=== PATIENT | female | born 1980 | race American Indian/Alaskan Native ===

== ENCOUNTER 2017-06-06 16:24 | Inpatient (IN) | payer OTHER ==
--- NOTE | 2017-06-06 18:32 | History and Physical Report ---
History of Present Illness Date of examination: 06/06/17 Date of admission: 06/06/17 16:26 Chief complaint: IUP at 36+2 weeks admitted for induction Morbid obesity History of present illness: 36-year-old at 36+2 wks is referred for induction of labor, she is a Late transfer to [facility]. Essential history this patient with morbid obesity, BMI 62 being seen by [facility] is referred for induction. complicated by cerclage placement by [facility] physician, IUGR (EFW 5% w/ AC < 1%), Morbid Obesity and Jehovahs witness status. Patient is a late transfer to [place] at ~ 26 wks as her prior physician was not comfortable with care of Jehovahs witness patients refusing blood. She was seen at the [facility] office today with BPP 8 out of 8 and normal Doppler studies. She was noted to have elevated blood pressure in the 140s systolic and 90s diastolic. She was therefore referred to [facility] for admission, observation, steroids and delivery. I had a long discussion with the patient about her status. I explained that she is morbidly obese with an IUGR fetus making the risks of failed induction and need to progress to higher. I explained that surgery with her Will carry the risk of severe hemorrhage, explained that even a normal vaginal delivery carries the risk of severe hemorrhage. I then went over her structures as regards of blood transfusion. Patient refuses all blood transfusion except Cell Saver. She understands the risks to her and her fetus. 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 denies: Lives alone, lives with family, IV drug use - Obstetrical History Expected Date of Delivery: 07/02/17 Actual Gestation: 36 Week(s) 3 Day(s) : 3 (tab #1 and SAB # 1) Para: 0 Medications and Allergies Allergies Allergy/AdvReac Type Severity Reaction Status Date / Time No Known Allergies Allergy Unverified 06/06/17 17:38 Home Medications Medication Instructions Recorded Confirmed Last Taken Type Acetaminophen [Mapap] 500 mg PO PRN 06/06/17 06/06/17 2 Days Ago History ~06/04/17 Pnv No.121/Iron/Folic Acid 1 tab PO QDAY 06/06/17 06/06/17 4 Days Ago History [ Multivitamin Tablet] ~06/02/17 Review of Systems Constitutional: no fever, no chills, no sweats, no fatigue, no chronic pain Cardiovascular: high blood pressure (mild elevated BP), no chest pain, no edema , no syncope, no lightheadedness, no shortness of breath, no dyspnea on exertion , no paroxysmal nocturnal dyspnea Respiratory: no cough with sputum, no hemoptysis, no shortness of breath, no dyspnea on exertion Gastrointestinal: no abdominal pain, no nausea, no vomiting, no constipation Genitourinary: no vaginal bleeding, no vaginal discharge, no leakage of fluid, no contractions - Vital Signs Vital signs: Vital Signs Temp Resp 97.4 F L 18 06/06/17 17:18 06/06/17 17:18 Temp Pulse Resp BP Pulse Ox 97.4 F L 77 18 138/95 100 06/06/17 17:18 06/06/17 18:15 06/06/17 17:18 06/06/17 17:53 06/06/17 18:15 - Physical Exam Cardiovascular: Regular rate, Normal S1, Normal S2 Lungs: Positive: Clear to auscultation Abdomen: Positive: normal appearance, soft. Negative: distention, tenderness, guarding, rigidity Uterus: Positive: other (the habitus makes it difficult to bench inspector) Results Result Diagrams: 06/06/17 18:45 06/06/17 18:45 All other labs normal. Assessment and Plan A: 36-year-old at 36+2 weeks -stable -Referred by Dr. Virginia Escobar ([facility]) for observation, steroids and then delivery Issues -IUGR (EFW 5% w/ AC < 1%) -Morbid Obesity (BMI ~ 62) -Jehovahs witness status -Cerclage placement -BPP 01/10 w/ nml Dopplers (06/06/17) P: -Admit -Obtain routine labs including HIV -BMZ course -Remove Cerclage and start induction process once steroids complete - Patient Problems (1) 36 to 37 weeks gestation of Current Visit: Yes Status: Acute (2) IUGR (intrauterine growth restriction) Current Visit: Yes Status: Acute (3) Cervical cerclage suture present Current Visit: Yes Status: Acute (4) Refusal of blood transfusions as patient is Sabianist Current Visit: Yes Status: Acute (5) Morbid obesity Current Visit: Yes Status: Acute
[2017-06-06] MEDS ORDERED: SODIUM CHLORIDE FLUSH SYRINGE 10 ML IV PRN (18:42)
[2017-06-06] MEDS ORDERED: COLACE PO PRN (18:42)
[2017-06-06] MEDS ORDERED: AMBIEN PO PRN (18:42)
[2017-06-06] MEDS ORDERED: BENADRYL PO PRN (18:42)
[2017-06-06] MEDS ORDERED: ALUM-MAG HYDROX-SIMETH 200-200-20MG/5ML PO PRN (18:42)
[2017-06-06] MEDS ORDERED: MILK OF MAGNESIA PO PRN (18:42)
[2017-06-06] MEDS ORDERED: TYLENOL PO PRN (18:42)
[2017-06-06] MEDS ORDERED: TUCKS PAD TP PRN (18:42)
[2017-06-06] MEDS ORDERED: MYLICON PO PRN (18:42)
[2017-06-06] MEDS ORDERED: DEEP SEA NS PRN (18:42)
[2017-06-06] MEDS ORDERED: SENOKOT S PO PRN (18:42)
[2017-06-06] MEDS ORDERED: ZOFRAN IV PRN (18:42)
[2017-06-06] MEDS ORDERED: APRESOLINE IV PRN (18:49)
[2017-06-06] MEDS ORDERED: LACTATED RINGERS 1,000 ML IV SCH (19:00)
[2017-06-06] MEDS ORDERED: CELESTONE SOLUSPAN IM ONE (19:06)
[2017-06-06 19:25] LABS: Basophils % (Auto) 0.2 % (0.0-1.8); Eosinophils # (Auto) 0.1 K/mm3 (0.0-0.4); Eosinophils % (Auto) 1.1 % (0.0-4.3); Hematocrit 37.6 % (30.3-42.9); Hemoglobin 12.5 gm/dl (10.1-14.3); Lymphocytes # (Auto) 1.5 K/mm3 (1.2-5.4); Lymphocytes % (Auto) 20.4 % (13.4-35.0); Mean Corpuscular HGB Conc 33 % (30-34); Mean Corpuscular Hemoglobin 29 pg (28-32); Mean Corpuscular Volume 88 fl (79-97); Monocytes # (Auto) 0.3 K/mm3 (0.0-0.8); Monocytes % (Auto) 4.5 % (0.0-7.3); Platelet Count 186 K/mm3 (140-440); Red Cell Distribution Width 13.3 % (13.2-15.2)
[2017-06-06 19:32] LABS: Bilirubin,Urine NEG (Negative); Blood,Urine NEG (Negative); Color,Urine Yellow (Yellow); Mucus,Urine 3+ /HPF; Nitrite,Urine NEG (Negative); Protein,Urine <15 mg/dL mg/dL (Negative)
[2017-06-06 19:46] LABS: Alanine Aminotransferase 13 units/L (7-56); Albumin 3.3 g/dL (3.9-5); BUN/Creatinine Ratio 24; Blood Urea Nitrogen 12 mg/dL (7-17); Hemolysis Index 45
[2017-06-07 07:36] VITALS: BP 116/71
--- NOTE | 2017-06-07 08:21 | Progress Note ---
Assessment and Plan A: 36-year-old at 36+3 weeks -stable -Referred by Dr. Virginia Escobar ([facility]) for observation, steroids and then delivery Issues -s/p BMZ # 1 -IUGR (EFW 5% w/ AC < 1%) -Morbid Obesity (BMI ~ 62) -Jehovahs witness status -Cerclage placement -BPP 8/8 w/ nml Dopplers (06/06/17) P: -BP and Doppler distress a.m. -Discharge home -Return to clinic for BMZ this night and tomorrow for induction - Patient Problems (1) 36 to 37 weeks gestation of Current Visit: Yes Status: Acute (2) IUGR (intrauterine growth restriction) Current Visit: Yes Status: Acute (3) Cervical cerclage suture present Current Visit: Yes Status: Acute (4) Refusal of blood transfusions as patient is Congregation Current Visit: Yes Status: Acute (5) Morbid obesity Current Visit: Yes Status: Acute Subjective - Subjective Date of service: 06/07/17 Principal diagnosis: IUP @ 36+3 wks, IUGR, Morbid Obesity, Jehovahs Witness ( accepts cell saver) Interval history: Patient seen, no issues this morning. Cat 1 tracing and blood pressure within normal. She requests discharge home to return later this night for her steroid shot. Plan at this point is to obtain BPP and Doppler, if normal will discharge home. Then returned this night for her second Celestone and she'll be induced morning Patient reports: new complaints, movement normal, no loss of fluid, no vaginal bleeding, no contractions Objective - Vital Signs Vital Signs: Vital Signs - 12hr 06/06/17 06/06/17 06/07/17 21:29 21:35 00:44 Temperature 97.1 F L 97.1 F L Pulse Rate 75 75 66 Respiratory 12 13 Rate Blood Pressure 104/71 Blood Pressure 104/71 117/71 [Left] O2 Sat by Pulse 97 Oximetry 06/07/17 06/07/17 06/07/17 00:48 00:53 05:08 Temperature Pulse Rate 67 69 75 Respiratory Rate Blood Pressure 117/71 113/68 Blood Pressure [Left] O2 Sat by Pulse 97 96 Oximetry 06/07/17 06/07/17 05:10 07:38 Temperature 98.5 F Pulse Rate 69 Respiratory 18 Rate Blood Pressure 116/71 Blood Pressure [Left] O2 Sat by Pulse Oximetry - Exam FHR: category 1 - Labs Labs: Abnormal Labs 06/06/17 06/06/17 06/06/17 18:45 18:45 19:10 Seg Neutrophils % 73.8 H Sodium 136 L Carbon Dioxide 21 L Creatinine 0.5 L Albumin 3.3 L Ur Specific [place] 1.035 H Laboratory Results - last 24 hr 06/06/17 06/06/17 06/06/17 18:45 18:45 18:45 WBC 7.6 RBC 4.30 Hgb 12.5 Hct 37.6 MCV 88 MCH 29 MCHC 33 RDW 13.3 Plt Count 186 Lymph % (Auto) 20.4 Frederick % (Auto) 4.5 Eos % (Auto) 1.1 Baso % (Auto) 0.2 Lymph # 1.5 Frederick # 0.3 Eos # 0.1 Baso # 0.0 Seg Neutrophils % 73.8 H Seg Neutrophils # 5.6 Sodium 136 L Potassium 4.0 Chloride 99.3 Carbon Dioxide 21 L Anion Gap 20 BUN 12 Creatinine 0.5 L Estimated GFR > 60 BUN/Creatinine Ratio 24 Glucose 68 Calcium 9.0 Total Bilirubin 0.30 AST 17 ALT 13 Alkaline Phosphatase 107 Total Protein 7.4 Albumin 3.3 L Albumin/Globulin Ratio 0.8 Urine Color Urine Turbidity Urine pH Ur Specific [place] Urine Protein Urine Glucose (UA) Urine Ketones Urine Blood Urine Nitrite Urine Bilirubin Urine Urobilinogen Ur Leukocyte Esterase Urine WBC (Auto) Urine RBC (Auto) U Epithel Cells (Auto) Urine Mucus HIV 1&2 Antibody Rapid HIV P24 Antigen Blood Type O POSITIVE Antibody Screen Negative 06/06/17 06/06/17 18:45 19:10 WBC RBC Hgb Hct MCV MCH MCHC RDW Plt Count Lymph % (Auto) Frederick % (Auto) Eos % (Auto) Baso % (Auto) Lymph # Frederick # Eos # Baso # Seg Neutrophils % Seg Neutrophils # Sodium Potassium Chloride Carbon Dioxide Anion Gap BUN Creatinine Estimated GFR BUN/Creatinine Ratio Glucose Calcium Total Bilirubin AST ALT Alkaline Phosphatase Total Protein Albumin Albumin/Globulin Ratio Urine Color Yellow Urine Turbidity Clear Urine pH 5.0 Ur Specific [place] 1.035 H Urine Protein <15 mg/dl Urine Glucose (UA) Neg Urine Ketones 20 Urine Blood Neg Urine Nitrite Neg Urine Bilirubin Neg Urine Urobilinogen 2.0 Ur Leukocyte Esterase Tr Urine WBC (Auto) 1.0 Urine RBC (Auto) 7.0 U Epithel Cells (Auto) 2.0 Urine Mucus 3+ HIV 1&2 Antibody Rapid Non react HIV P24 Antigen Non react Blood Type Antibody Screen
[2017-06-07] MEDS ORDERED: CELESTONE SOLUSPAN IM SCH (10:00)
[2017-06-07] MEDS ORDERED: PRENATAL VITAMIN PO SCH (10:00)
--- NOTE | 2017-06-07 16:28 | Ultrasound Report ---
FINAL REPORT EXAM: US OB BPP WO NON-STRESS HISTORY: well being/IUGR TECHNIQUE: Ultrasound examination of the gravid uterus for biophysical profile evaluation of the fetus PRIORS: None. FINDINGS: There is a single viable intrauterine with documented cardiac activity. The amniotic fluid volume is normal. heart rate: 143 bpm Amniotic fluid index: 8.9 cm position: Cephalic Placental position: Anterior Evaluation for biophysical profile yields the following score as reported by technologist from real-time exam: respiratory motion (minimum one episode): 2 Gross body movement (minimum 3 movements): 2 tone (minimum one flexion and extension): 2 Amniotic fluid volume (at least 2 cm pocket in vertical diameter): 2 IMPRESSION: Single viable intrauterine with 8/8 biophysical profile score during the sonographic evaluation
--- NOTE | 2017-06-07 16:30 | Ultrasound Report ---
FINAL REPORT EXAM: US OB LIMITED HISTORY: well being/IUGR , reported gestational age 36 weeks 3 days TECHNIQUE: Targeted Ob ultrasound evaluation of the amniotic fluid PRIORS: Biophysical profile 06/07/2017 FINDINGS: heart rate 132 beats per minute. Amniotic fluid index 8.9 cm. IMPRESSION: Amniotic fluid index 8.9 cm
--- NOTE | 2017-06-07 16:36 | Ultrasound Report ---
FINAL REPORT EXAM: US OB VELOCIMETRY UMBILCAL ART HISTORY: wellbeing/iugr , reported gestational age is 36 weeks 3 days TECHNIQUE: Targeted Ob ultrasound evaluation of the umbilical cord SD ratio PRIORS: Biophysical profile 06/07/2017 FINDINGS: cardiac activity is measured at 137 beats per minute. S/D umbilical cord ratios are measured 3 separate times. Ratios are 2.18, 2.18, and 2.21. Less than 3 is considered within normal limits in the 3rd trimester. Normal range of 36 weeks is 1.96-3.15. IMPRESSION: S/D umbilical cord ratios are within normal limits
--- NOTE | 2017-06-07 17:14 | Discharge Summary ---
Providers - Providers Date of Admission: 06/06/17 16:26 Date of discharge: 06/07/17 Attending physician: JIMBO HENRIQUEZ Primary care physician: JIMBO HENRIQUEZ Hospitalization Reason for admission: observation, induction of labor Discharge diagnosis: other Hospital course: 36-year-old at 36+2 wks is referred for induction of labor, she is a Late transfer to [facility]. Essential history this patient with morbid obesity, BMI 62 being seen by [facility] is referred for induction. complicated by cerclage placement by [facility] physician, IUGR (EFW 5% w/ AC < 1%), Morbid Obesity and Jehovahs witness status. Patient is a late transfer to [place] at ~ 26 wks as her prior physician was not comfortable with care of Jehovahs witness patients refusing blood. She was seen at the [facility] office on 06/06/17 with BPP 8 out of 8 and normal Doppler studies. She was noted to have elevated blood pressure in the 140s systolic and 90s diastolic. She was therefore referred to [facility] for admission, observation, steroids and delivery. I had a long discussion with the patient about her status. I explained that she is morbidly obese with an IUGR fetus making the risks of failed induction and need to progress to higher. I explained that surgery with her Will carry the risk of severe hemorrhage, explained that even a normal vaginal delivery carries the risk of severe hemorrhage. I then went over her structures as regards of blood transfusion. Patient refuses all blood transfusion except Cell Saver. She understands the risks to her and her fetus. On admission to the floor, reviewed [facility] notes. It appears recommendation is observation for blood pressure issues, Celestone course and then delivery. Patient's blood pressure remained essentially within normal limits. Celestone course was started She requested discharge home to return to hospital to complete Celestone course. BPP in Dopplers obtained were normal, she was discharged home and scheduled for repeat Celestone tonight and induction . Condition at discharge: Good Disposition: [id number] TO HOME OR SELFCARE - Discharge Diagnoses (1) 36 to 37 weeks gestation of Status: Acute (2) IUGR (intrauterine growth restriction) Status: Acute (3) Cervical cerclage suture present Status: Acute (4) Refusal of blood transfusions as patient is Zoroastrian Status: Acute (5) Morbid obesity Status: Acute Plan - Provider Discharge Summary Activity: no heavy lifting 4 weeks, no strenuous exercise Diet: routine Additional instructions: [] Smoking cessation referral if applicable(refer to patient education folder for contact #) [] Refer to [facility]'s [facility] Booklet Call your doctor immediately for: * Fever > 100.5 * Heavy vaginal bleeding ( >1 pad per hour) * Severe persistent headache * Shortness of breath * Reddened, hot, painful area to leg or breast * Drainage or odor from incision. * Keep incision clean and dry at all times and follow doctor's instructions regarding bathing/showering Return to the hospital on 06/07/2017 for repeat Celestone april Has scheduled induction on 06/08/2017 - Follow up plan
== END 2017-06-07 11:58 | disposition home or self-care (01) | DRG 782 ==
LOC: TRG 16:24 → LD 16:26
PROVIDERS: ADMIT Obstetrics & Gynecology Gynecology; ATTEND Obstetrics & Gynecology Gynecology
DX: O36.5930 Maternal care for other known or suspected poor fetal growth, third trimester, not applicable or unspecified (principal); Z68.44 Body mass index [BMI] 60.0-69.9, adult; O99.213 Obesity complicating pregnancy, third trimester; E66.01 Morbid (severe) obesity due to excess calories; Z3A.36 36 weeks gestation of pregnancy; Z98.84 Bariatric surgery status
CPT/HCPCS: 36415; 76815; 76819; 76820; 80053; 81001; 85025; 86850; 86900; 86901; 87806; J0702

== ENCOUNTER 2017-06-07 19:44 | Outpatient (CLI) | payer OTHER ==
[2017-06-07] MEDS ORDERED: CELESTONE SOLUSPAN IM ONE (21:00)
== END 2017-06-07 20:30 | disposition home or self-care (01) ==
LOC: TRG 19:44
PROVIDERS: ATTEND Obstetrics & Gynecology Gynecology
DX: Z34.93 Encounter for supervision of normal pregnancy, unspecified, third trimester (principal); Z3A.36 36 weeks gestation of pregnancy
CPT/HCPCS: 96372; J0702

== ENCOUNTER 2017-06-08 09:00 | Inpatient (IN) | payer OTHER ==
[2017-06-08 11:03] LABS: Hematocrit 32.8 % (30.3-42.9); Hemoglobin 10.8 gm/dl (10.1-14.3); Mean Corpuscular HGB Conc 33 % (30-34); Mean Corpuscular Hemoglobin 29 pg (28-32); Mean Corpuscular Volume 88 fl (79-97); Platelet Count 171 K/mm3 (140-440); Red Blood Count 3.72 M/mm3 (3.65-5.03); Red Cell Distribution Width 13.2 % (13.2-15.2)
--- NOTE | 2017-06-08 12:18 | History and Physical Report ---
History of Present Illness Date of examination: 06/08/17 Date of admission: 06/08/17 09:00 Chief complaint: Induction for IUGR History of present illness: 36-year-old at 36+4 wks is referred for induction of labor, she is a Late transfer to [facility]. Essential history this patient with morbid obesity, BMI ~ 62 being seen by [facility] (Dr. Virginia Escobar) is referred for induction. complicated by cerclage placement by [facility] physician, IUGR ( EFW 5% w/ AC < 1%), Morbid Obesity and Jehovahs witness status. Patient is a late transfer to [place] at ~ 26 wks as her prior physician was not comfortable with care of Jehovahs witness patients refusing blood. She was seen at the [facility] office on 06/06/17 with BPP 8 out of 8 and normal Doppler studies. She was noted to have elevated blood pressure in the 140s systolic and 90s diastolic. She was therefore referred to [facility] for admission, observation, steroids and delivery. Admitted overnight for steroid course prior to cerclage removal. Blood pressure monitoring showed normal numbers. Help labs were negative. Received her first Celestone. Patient requested discharge home as vitals were stable and she did not want to remain in hospital. A BPP and Doppler obtained where within normal limits so patient was discharged home. Returns today to start induction process I had a long discussion with the patient about her status on 06/06/17 and today. I explained that she is morbidly obese with an IUGR fetus making the risks of failed induction and need to progress to higher. I explained that surgery with her Will carry the risk of severe hemorrhage, explained that even a normal vaginal delivery carries the risk of severe hemorrhage. I then went over her wishes as regards blood transfusion. Patient refuses all blood transfusion except Cell Saver. She understands the risks to her and her fetus. Cerclage was removed in the room, she is LTC. 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 denies: Lives alone, lives with family, smoking, IV drug use - Obstetrical History Expected Date of Delivery: 07/02/17 Actual Gestation: 36 Week(s) 4 Day(s) : 3 Para: 0 Medications and Allergies Allergies Allergy/AdvReac Type Severity Reaction Status Date / Time No Known Allergies Allergy Verified 06/07/17 19:49 Home Medications Medication Instructions Recorded Confirmed Last Taken Type Acetaminophen [Mapap] 500 mg PO PRN 06/06/17 06/06/17 2 Days Ago History ~06/04/17 Pnv No.121/Iron/Folic Acid 1 tab PO QDAY 06/06/17 06/06/17 4 Days Ago History [ Multivitamin Tablet] ~06/02/17 Review of Systems Constitutional: no fever, no chills, no fatigue, no weakness Cardiovascular: no chest pain, no orthopnea, no palpitations, no rapid/ irregular heart beat, no edema, no syncope, no lightheadedness, no shortness of breath, no dyspnea on exertion, no paroxysmal nocturnal dyspnea, no high blood pressure Respiratory: no cough, no cough with sputum, no hemoptysis, no shortness of breath, no dyspnea on exertion Gastrointestinal: no abdominal pain, no nausea, no vomiting Genitourinary: no vaginal bleeding, no vaginal discharge, no leakage of fluid, no contractions - Vital Signs Vital signs: Vital Signs Temp Resp 97.1 F L 20 06/08/17 09:52 06/08/17 09:52 Temp Pulse Resp BP Pulse Ox 97.1 F L 75 20 100/57 06/08/17 09:52 06/08/17 11:59 06/08/17 09:52 06/08/17 11:59 - Physical Exam Cardiovascular: Regular rate, Normal S1, Normal S2 Lungs: Positive: Clear to auscultation, Normal air movement Abdomen: Positive: normal appearance, soft, other (obese). Negative: tenderness , guarding Genitourinary (Female): Positive: normal external genitalia Uterus: Positive: other (unable to estimate size due to body habitus) - Obstetrical FHR: category 1 Cervical Dilatation: 0 Results Result Diagrams: 06/08/17 10:30 All other labs normal. Assessment and Plan A: 36-year-old at 36+4 weeks -Cat 1 tracing -s/p Cerclage removal in RM Issues -IUGR (EFW 5% w/ AC < 1%) -Morbid Obesity (BMI ~ 62) -Jehovahs witness status -Cerclage placement -BPP 01/10 w/ nml Dopplers (06/06/17) P: -Admit -Obtain routine labs -Induction process with Cervidil - Patient Problems (1) 36 to 37 weeks gestation of Current Visit: No Status: Acute (2) Cervical cerclage suture present Current Visit: No Status: Acute (3) IUGR (intrauterine growth restriction) Current Visit: No Status: Acute (4) Morbid obesity Current Visit: No Status: Acute (5) Refusal of blood transfusions as patient is Holiness Current Visit: No Status: Acute
[2017-06-08] MEDS ORDERED: ZOFRAN IV PRN (12:30)
[2017-06-08] MEDS ORDERED: SUBLIMAZE IV PRN (12:30)
[2017-06-08] MEDS ORDERED: XYLOCAINE 2% INFILTRATI ONE (12:30)
[2017-06-08] MEDS ORDERED: PHENERGAN PO PRN (12:30)
[2017-06-08] MEDS ORDERED: BRETHINE IVP PRN (12:30)
[2017-06-08] MEDS ORDERED: NARCAN 0.4 MG/1 ML IV PRN (12:30)
[2017-06-08] MEDS ORDERED: MINERAL OIL PO PRN (12:30)
--- NOTE | 2017-06-08 12:33 | Post Operative Note ---
Pre-op diagnosis: cerclage removal Post-op diagnosis: same Findings: Long thick and closed cervix with cerclage tagged at 12 o'clock position Procedure: Uncomplicated removal of cerclage in patient's room Anesthesia: none Surgeon: JIMBO HENRIQUEZ Estimated blood loss: none Pathology: none Specimen disposition: discarded Condition: stable Disposition: no change
[2017-06-08] MEDS ORDERED: ePHEDrine SULFATE IV PRN (12:49)
[2017-06-08] MEDS ORDERED: BRETHINE SUB-Q PRN (12:49)
[2017-06-08] MEDS ORDERED: PITOCin/NS 20 UNIT/1000ML DRIP 20 UNITS/1,000 ML BAG IV SCH (13:00)
[2017-06-08] MEDS ORDERED: PITOCin/NS 30 UNIT/500ML 30 UNITS/500 ML BAG IV SCH (13:00)
[2017-06-08] MEDS ORDERED: CERVIDIL VG ONE (13:00)
[2017-06-08] MEDS ORDERED: POLYCILLIN/NS 2 GM/100 ML 2 GM/100 ML BAG IV ONE (13:30)
[2017-06-08] MEDS ORDERED: POLYCILLIN/NS 1 GM/50 ML 1 GM/50 ML BAG IV SCH (17:30)
[2017-06-09] MEDS: AMBIEN PO PRN (02:50)
[2017-06-09] MEDS ORDERED: CERVIDIL VG ONE (06:49)
--- NOTE | 2017-06-09 14:50 | Progress Note ---
Assessment and Plan - Patient Problems (1) 36 to 37 weeks gestation of Onset Date: 06/09/17 Current Visit: No Status: Acute Plan to address problem: A: IUP @ 36 5/7 weeks IUGR 5th % P: Continue with cervidel/pitocin induction of labor (2) IUGR (intrauterine growth restriction) Onset Date: 06/09/17 Current Visit: No Status: Acute (3) Morbid obesity Onset Date: 06/09/17 Current Visit: No Status: Chronic (4) Refusal of blood transfusions as patient is Moravian Onset Date: 06/09/17 Current Visit: No Status: Chronic Subjective - Subjective Date of service: 06/09/17 Principal diagnosis: IUP @ 36 5/7 weeks; IUGR Interval history: Pt is feeling well without complaints. Her cervical cerclage was removed earlier and currently had her 2nd cervidel placed @ 1015 today. She denies any contractions. Patient reports: movement normal, no new complaints, no loss of fluid, no vaginal bleeding, no contractions Objective - Vital Signs Vital Signs: Vital Signs - 12hr 06/09/17 06/09/17 06/09/17 02:53 02:57 07:30 Temperature 96.9 F L 97.4 F L Pulse Rate 64 64 72 Respiratory 13 22 Rate Blood Pressure 104/53 Blood Pressure 104/53 101/58 [Right] 06/09/17 06/09/17 06/09/17 07:46 10:43 12:29 Temperature Pulse Rate 72 69 79 Respiratory Rate Blood Pressure 101/58 121/72 128/59 Blood Pressure [Right] - Exam Breasts: deferred Cardiovascular: Regular rate Lungs: Clear to auscultation Abdomen: Present: normal appearance FHR: category 1 Uterine Contraction Monitor Mode: External Cervical Dilatation: 0.5 Uterine Contraction Pattern: Absent Uterine Tone Measurement Phase: Contraction
[2017-06-09] MEDS ORDERED: PITOCin/NS 30 UNIT/500ML 30 UNITS/500 ML BAG IV SCH (23:15)
[2017-06-10] MEDS: AMBIEN PO PRN (01:19)
[2017-06-10] MEDS: LACTATED RINGERS 1,000 ML IV SCH ×3 (01:21→16:37)
--- NOTE | 2017-06-10 13:25 | Progress Note ---
Assessment and Plan - Patient Problems (1) 36 to 37 weeks gestation of Onset Date: 06/09/17 Current Visit: No Status: Acute Plan to address problem: A: IUP @ 36 6/7 weeks IUGR 5th % P: Continue with pitocin induction of labor (2) IUGR (intrauterine growth restriction) Onset Date: 06/09/17 Current Visit: No Status: Acute (3) Morbid obesity Onset Date: 06/09/17 Current Visit: No Status: Chronic (4) Refusal of blood transfusions as patient is Nondenominational Onset Date: 06/09/17 Current Visit: No Status: Chronic Subjective - Subjective Date of service: 06/10/17 Principal diagnosis: IUP @ 36 6/7 weeks; IUGR Interval history: Pt is feeling well without complaints. She received low dose pitocin last night and is currently dilated 1.5/90/V/-2 She denies strong contractions. Patient reports: loss of fluid, movement normal, contractions, no new complaints, no vaginal bleeding Objective - Vital Signs Vital Signs: Vital Signs - 12hr 06/10/17 06/10/17 06/10/17 01:33 02:33 03:33 Temperature Pulse Rate 66 71 88 Respiratory Rate Blood Pressure 121/72 120/59 119/80 Blood Pressure [Right] O2 Sat by Pulse Oximetry 06/10/17 06/10/17 06/10/17 04:33 05:11 05:33 Temperature 97.4 F L Pulse Rate 74 69 77 Respiratory 20 Rate Blood Pressure 103/68 111/72 Blood Pressure [Right] O2 Sat by Pulse 100 Oximetry 06/10/17 06/10/17 06/10/17 06:34 07:33 08:32 Temperature 97.6 F Pulse Rate 70 64 Respiratory 18 Rate Blood Pressure 130/70 121/70 Blood Pressure [Right] O2 Sat by Pulse Oximetry 06/10/17 06/10/17 06/10/17 08:33 09:33 10:37 Temperature Pulse Rate 65 81 88 Respiratory Rate Blood Pressure 120/68 133/84 129/63 Blood Pressure [Right] O2 Sat by Pulse Oximetry 06/10/17 06/10/17 06/10/17 12:13 12:52 12:56 Temperature 97.5 F L Pulse Rate 94 H 76 76 Respiratory 18 Rate Blood Pressure 123/62 Blood Pressure 123/62 [Right] O2 Sat by Pulse 98 Oximetry - Exam Abdomen: Present: normal appearance, soft Uterus: Present: normal FHR: category 1 Uterine Contraction Monitor Mode: External Cervical Dilatation: 1.5 Cervical Effacement Percentage: 90 station: -2 Uterine Contraction Pattern: Irregular Uterine Tone Measurement Phase: Contraction Uterine Contraction Intensity: Mild
[2017-06-10] MEDS: STADOL IV PRN ×2 (13:49→16:17)
[2017-06-10] MEDS ORDERED: NARCAN 2 MG/2 ML IV PRN (17:34)
[2017-06-10] MEDS ORDERED: ePHEDrine SULFATE IV PRN (17:34)
--- NOTE | 2017-06-10 17:34 | Anesthesia Consultation ---
Anesthesia Consult and Med Hx Date of service: 06/10/17 - Airway Anesthetic Teeth Evaluation: Good ROM Head & Neck: Adequate Mental/Hyoid Distance: Adequate Mallampati Class: Class II Intubation Access Assessment: Probably Good - Pulmonary Exam CTA: Yes - Cardiac Exam Cardiac Exam: RRR - Pre-Operative Health Status ASA Pre-Surgery Classification: ASA2 Proposed Anesthetic Plan: Epidural - Pulmonary Hx Asthma: No COPD: No Hx Pneumonia: No - Cardiovascular System Hx Hypertension: Yes - Central Nervous System Hx Seizures: No Hx Psychiatric Problems: Yes (depression) - Endocrine Hx Renal Disease: No Hx End Stage Renal Disease: No Hx Hypothyroidism: No Hx Hyperthyroidism: No - Hematic Hx Anemia: No Hx Sickle Cell Disease: No - Other Systems Hx Alcohol Use: No
[2017-06-10] MEDS ORDERED: POLYCILLIN/NS 2 GM/100 ML 2 GM/100 ML BAG IV ONE (18:00)
[2017-06-10] MEDS ORDERED: fentaNYL-BUPIV 2 MCG/ML-0.125% 200 MCG/100 ML BAG EPIDURAL SCH (18:00)
--- NOTE | 2017-06-10 20:19 | Procedure Note ---
OB Delivery Note - Delivery Date of Delivery: 06/10/17 Surgeon: SEVERIANO LOCKWOOD Estimated blood loss: 200cc - Vaginal Delivery presentation: vertex Delivery position: OA Intrapartum events: labor-<37 weeks, prolonged labor- > = 20hr, other( please specify) (IUGR) Delivery induction: cervidil Delivery augmentation: pitocin Delivery monitor: internal FHT, internal uterine Route of delivery: Delivery placenta: manual Delivery cord: nuchal cord (x1), 3 umbilical vessels Episiotomy: none Delivery laceration: 1st degree, vaginal side wall Delivery repair: vicryl Anesthesia: epidural Delivery comments: Infant delivered OA and placed on Mom's chest for [id number] bonding and delayed cord clamping. Peds/RT in attendance. - Infant A at 1 minute: 8 at 5 minutes: 9 Gender: Female (2246gms)
[2017-06-10] MEDS ORDERED: DULCOLAX PR PRN (20:23)
[2017-06-10] MEDS ORDERED: NORCO 5/325 PO PRN (20:23)
[2017-06-10] MEDS ORDERED: ZOFRAN IV PRN (20:23)
[2017-06-10] MEDS ORDERED: TYLENOL PO PRN (20:23)
[2017-06-10] MEDS ORDERED: PHENERGAN PO PRN (20:23)
[2017-06-10] MEDS ORDERED: MILK OF MAGNESIA PO PRN (20:23)
[2017-06-10] MEDS ORDERED: BENADRYL PO PRN (20:23)
[2017-06-10] MEDS ORDERED: TUCKS PAD TP PRN (20:23)
[2017-06-10] MEDS ORDERED: PERCOCET 5/325 PO PRN (20:23)
[2017-06-10] MEDS ORDERED: LANSINOH TP PRN (20:23)
[2017-06-10] MEDS ORDERED: PHENERGAN PR PRN (20:23)
[2017-06-10] MEDS ORDERED: SODIUM CHLORIDE FLUSH SYRINGE 10 ML IV NR (21:00)
[2017-06-10] MEDS ORDERED: PITOCin/NS 20 UNIT/1000ML DRIP 20 UNITS/1,000 ML BAG IV SCH (21:00)
[2017-06-10] MEDS: FEOSOL PO SCH (23:08)
[2017-06-10] MEDS: MOTRIN PO SCH (23:08)
[2017-06-11] MEDS: MOTRIN PO SCH ×2 (05:18→23:40)
[2017-06-11] MEDS ORDERED: BOOSTRIX IM ONE (06:00)
[2017-06-11] MEDS ORDERED: M-M-R II VACCINE SUB-Q ONE (06:00)
[2017-06-11 08:29] LABS: Hematocrit 25.8 % (30.3-42.9); Hemoglobin 8.4 gm/dl (10.1-14.3)
[2017-06-11] MEDS ORDERED: PRENATAL VITAMIN PO SCH (10:00)
--- NOTE | 2017-06-11 11:54 | Progress Note ---
Assessment and Plan - Patient Problems (1) 36 to 37 weeks gestation of Onset Date: 06/09/17 Current Visit: No Status: Resolved (2) IUGR (intrauterine growth restriction) Onset Date: 06/09/17 Current Visit: No Status: Resolved (3) Morbid obesity Onset Date: 06/09/17 Current Visit: No Status: Chronic (4) Refusal of blood transfusions as patient is [employer] Onset Date: 06/09/17 Current Visit: No Status: Chronic (5) (normal spontaneous vaginal delivery) Onset Date: 06/11/17 Current Visit: Yes Status: Resolved Plan to address problem: A: S/P - PPD #1 Doing well Acute blood loss anemia - stable P: May go home tomorrow. (6) Acute blood loss anemia Onset Date: 06/11/17 Current Visit: Yes Status: Acute Subjective - Subjective Date of service: 06/11/17 Principal diagnosis: s/p - PPD #1 Interval history: Pt is feeling well without complaints. Bleeding improved. Patient reports: appetite normal, voiding normally, pain well controlled, flatus , ambulating normally : doing well, nursing well Objective - Vital Signs Latest vital signs: Vital Signs Temp Pulse Resp BP BP Pulse Ox 06/11/17 08:56 99.5 F 83 20 133/67 100 06/11/17 04:15 98.6 F 74 18 117/74 06/11/17 01:00 98.6 F 71 16 120/64 06/10/17 21:30 99.2 F 67 18 132/71 06/10/17 21:00 67 140/75 06/10/17 20:45 73 114/65 06/10/17 20:30 69 141/83 06/10/17 20:15 77 142/89 06/10/17 20:00 83 158/83 06/10/17 19:51 77 86 06/10/17 19:50 98.8 F 76 20 100 06/10/17 19:46 72 153/86 06/10/17 19:45 67 100 06/10/17 19:40 73 99 06/10/17 19:35 66 100 06/10/17 19:31 70 149/78 06/10/17 19:30 74 100 06/10/17 19:25 71 100 06/10/17 19:20 71 99 06/10/17 19:17 73 156/76 06/10/17 19:15 70 99 06/10/17 19:10 70 100 06/10/17 19:05 68 100 06/10/17 19:00 65 151/73 100 06/10/17 18:55 65 100 06/10/17 18:50 67 100 06/10/17 18:45 73 151/76 100 06/10/17 18:42 71 93 06/10/17 18:40 79 99 06/10/17 18:35 79 99 06/10/17 18:31 84 118/94 90 06/10/17 18:30 83 90 06/10/17 18:28 157 H 117/76 06/10/17 18:26 75 133/80 06/10/17 18:24 87 144/67 06/10/17 18:21 82 134/66 06/10/17 18:18 75 116/61 06/10/17 18:16 76 118/56 06/10/17 18:14 75 111/64 06/10/17 18:12 75 117/67 06/10/17 18:10 73 115/67 06/10/17 18:08 75 110/60 06/10/17 18:06 88 108/60 06/10/17 18:04 85 105/57 06/10/17 18:02 89 101/58 06/10/17 18:00 104 H 104/59 06/10/17 17:58 96 H 113/73 06/10/17 17:56 121/85 06/10/17 17:54 78 138/89 06/10/17 17:52 76 137/84 99 06/10/17 17:50 82 133/82 06/10/17 17:48 102 H 139/93 06/10/17 17:47 91 H 93 06/10/17 15:39 62 132/78 06/10/17 15:33 96.9 F L 18 06/10/17 13:49 18 06/10/17 13:25 71 100 06/10/17 12:56 76 123/62 06/10/17 12:52 97.5 F L 76 18 123/62 06/10/17 12:13 94 H 98 Intake and Output 06/10/17 06/11/17 06/11/17 22:59 06:59 14:59 Intake Total 1128.734 600 Output Total 1000 2200 Balance 128.734 -1600 Intake: IV 828.734 Lactated Ringers 1,000 ml 741.667 @ 125 mls/hr IV [facility] Rx#:[id number] PITOCin/NS 30 UNIT/500ML 87.067 30 units In 500 ml @ 2 MILLIUNITS/MIN 2 mls/hr IV TITR [facility] Rx#:[id number] Intake, Free Water 300 600 Output: Urine 1000 2200 Indwelling Catheter 800 Self-Catheterization 200 Void 2200 Other: Total, Output Amount 200 800 # Voids Void 1 Estimated Blood Loss 200 - Exam Breasts: Present: deferred Cardiovascular: Present: Regular rate Lungs: Present: Clear to auscultation Abdomen: Present: normal appearance, soft Uterus: Present: normal, firm, fundal height at umbilicus Extremities: Present: normal - Labs Labs: Abnormal lab results 06/11/17 Range/Units 08:13 Hgb 8.4 L (10.1-14.3) gm/dl Hct 25.8 L D (30.3-42.9) % Laboratory Tests 06/08/17 06/08/17 06/08/17 10:30 10:30 10:30 WBC 10.0 RBC 3.72 Hgb 10.8 Hct 32.8 MCV 88 MCH 29 MCHC 33 RDW 13.2 Plt Count 171 RPR Nonreactive Blood Type O POSITIVE Antibody Screen Negative 06/11/17 08:13 WBC RBC Hgb 8.4 L Hct 25.8 L D MCV MCH MCHC RDW Plt Count RPR Blood Type Antibody Screen
--- NOTE | 2017-06-11 12:11 | Discharge Summary ---
Providers - Providers Date of Admission: 06/08/17 09:00 Date of discharge: 06/12/17 Attending physician: JIMBO HENRIQUEZ Primary care physician: JIMBO HENRIQUEZ Hospitalization Reason for admission: IUP - , induction of labor, other (IUGR) Delivery: Episiotomy: none Laceration: 2nd degree Other procedures: none complications: none Discharge diagnosis: delivery baby: female Hospital course: Unremarkable. 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 Status: Chronic (5) (normal spontaneous vaginal delivery) Status: Resolved (6) Acute blood loss anemia Status: Acute Plan - Discharge Medications Prescriptions: Ferrous Sulfate [Feosol 325 MG tab] 325 mg PO BID #60 tablet Ibuprofen [Motrin 600 MG tab] 600 mg PO Q6H #30 tablet Prenat 115/Iron Fum/Folic/Dss [Pnv-Ferrous Fuseadbt-Nbrf-EG] 1 each PO DAILY # 30 tablet - Provider Discharge Summary Activity: routine, no sex for 6 weeks, no heavy lifting 4 weeks, no strenuous exercise Diet: routine Instructions: routine Additional instructions: [] Smoking cessation referral if applicable(refer to patient education folder for contact #) [] Refer to [facility] Booklet Call your doctor immediately for: * Fever > 100.5 * Heavy vaginal bleeding ( >1 pad per hour) * Severe persistent headache * Shortness of breath * Reddened, hot, painful area to leg or breast * Drainage or odor from incision. * Keep incision clean and dry at all times and follow doctor's instructions regarding bathing/showering - Follow up plan Follow up: JIMBO HENRIQUEZ MD [Primary Care Provider] - 6 Weeks
[2017-06-11] MEDS: FEOSOL PO SCH (23:40)
[2017-06-12] MEDS: MOTRIN PO SCH ×2 (06:31→12:12)
[2017-06-12 13:27] VITALS: BP 126/76
[2017-06-12] MEDS: FEOSOL PO SCH (15:21)
== END 2017-06-12 13:45 | disposition home or self-care (01) | DRG 981 ==
LOC: LD 09:00 → OB 06-10 22:30
PROVIDERS: ADMIT Obstetrics & Gynecology Gynecology; ATTEND Obstetrics & Gynecology Gynecology
PROC: 0UCC7ZZ Extirpation of Matter from Cervix, Via Natural or Artificial Opening (ICD-10-PCS; 2017-06-08)
PROC: 10E0XZZ Delivery of Products of Conception, External Approach (ICD-10-PCS; principal; 2017-06-10)
PROC: 3E0P7VZ Introduction of Hormone into Female Reproductive, Via Natural or Artificial Opening (ICD-10-PCS; 2017-06-10)
PROC: 0HQ9XZZ Repair Perineum Skin, External Approach (ICD-10-PCS; 2017-06-10)
PROC: 3E0R3BZ Introduction of Anesthetic Agent into Spinal Canal, Percutaneous Approach (ICD-10-PCS; 2017-06-10)
PROC: 00HU33Z Insertion of Infusion Device into Spinal Canal, Percutaneous Approach (ICD-10-PCS; 2017-06-10)
DX: O36.5930 Maternal care for other known or suspected poor fetal growth, third trimester, not applicable or unspecified (principal); O60.14X0 Preterm labor third trimester with preterm delivery third trimester, not applicable or unspecified; Z68.44 Body mass index [BMI] 60.0-69.9, adult; O63.9 Long labor, unspecified; D62 Acute posthemorrhagic anemia; O69.81X0 Labor and delivery complicated by cord around neck, without compression, not applicable or unspecified; Z37.0 Single live birth; O99.214 Obesity complicating childbirth; E66.01 Morbid (severe) obesity due to excess calories; Z3A.36 36 weeks gestation of pregnancy; Z53.29 Procedure and treatment not carried out because of patient's decision for other reasons; O70.0 First degree perineal laceration during delivery; O99.344 Other mental disorders complicating childbirth; O16.4 Unspecified maternal hypertension, complicating childbirth; O90.81 Anemia of the puerperium
CPT/HCPCS: 36415; 85014; 85018; 85027; 86592; 86850; 86900; 86901; 88307; 99211; G0463; J0290; J0595; J2590; J7120